=== PATIENT | male | born 1970 | race Caucasian/White ===

== ENCOUNTER 2018-03-27 18:37 | Inpatient (IN) | payer OTHER ==
[~2018-03-27] VITALS: Ht 177.8 cm; Wt 161.0 kg
[2018-03-27 19:03] LABS: CHLORIDE 97 mEq/L (99-109); POTASSIUM 3.5 mEq/L (3.7-5.4); SODIUM 136 mEq/L (136-147)
[2018-03-27 19:05] LABS: GLUCOSE 199 mg/dL (70-99)
[2018-03-27 19:09] LABS: CREATININE 1.1 mg/dL (0.6-1.3); GFR ESTIMATE (CALCULATED) > 59 mL/min/ (58.99-99999)
[2018-03-27 19:10] LABS: UREA NITROGEN (BUN) 11 mg/dL (9-23)
[2018-03-27 19:14] LABS: HEMATOCRIT 47.6 % (38.0-50.0); HEMOGLOBIN 16.5 G/DL (12.5-16.6); MCHC 34.7 G/DL (30.0-36.0); MCV 89.3 FL (86-99); PLATELET COUNT 207 K/uL (156-360); RBC DIS.WIDTH-CV 13.6 % (11.8-14.6); RBC DIS.WIDTH-SD 44.4 % (39-53); RED BLOOD COUNT 5.33 M/uL (4.00-5.50)
[2018-03-27 19:18] LABS: TROP-I INTERPRETATION NEGATIVE; TROPONIN-I 0.05 ng/mL (0.0-0.30)
[2018-03-27] MEDS ORDERED: JARDIANCE10 MG PO (19:31)
[2018-03-27] MEDS ORDERED: HYGROTON25 MG PO (19:31)
[2018-03-27] MEDS ORDERED: LIPITOR20 MG PO (19:31)
[2018-03-27] MEDS ORDERED: GLUCOTROL10 MG PO (19:32)
[2018-03-27] MEDS ORDERED: NITROSTAT0.4 MG SL (19:32)
[2018-03-27 19:38] LABS: MAGNESIUM 2.3 mg/dL (1.3-2.7)
[2018-03-27 19:45] LABS: LIPASE 17 U/L (1.0-51.0)
[2018-03-27 21:23] LABS: TOTAL PROTEIN 8.1 g/dL (6.4-8.3)
[2018-03-27 21:25] LABS: TOTAL BILIRUBIN 0.5 mg/dL (0.0-1.0)
[2018-03-27 21:26] LABS: ALKALINE PHOSPHATASE 94 IU/L (3-129); SERUM ETHYL ALCOHOL < 10 mg/dL
[2018-03-27 21:28] LABS: AST (GOT) 24 IU/L (2-34)
[2018-03-27 21:29] LABS: ALT (GPT) 25 IU/L (3-49); DIRECT BILIRUBIN 0.2 mg/dL (0.0-0.3)
[2018-03-27 23:35] VITALS: BP 139/68
[2018-03-28] VITALS (7 sets, daily range): BP systolic 101–142; BP diastolic 59–82
[2018-03-28 01:32] LABS: TROP-I INTERPRETATION NEGATIVE; TROPONIN-I 0.04 ng/mL (0.0-0.30)
[2018-03-28 03:31] LABS: APPEARANCE CLEAR ((CLEAR)); BILIRUBIN NEGATIVE; BLOOD MODERATE; COLOR YELLOW ((YELLOW)); GLUCOSE (STRIP) NEGATIVE; KETONES NEGATIVE; LEUKOCYTES NEGATIVE; NITRITE NEGATIVE; PROTEIN (STRIP) NEGATIVE; SPECIFIC GRAVITY 1.038 (1.000-1.030)
[2018-03-28 03:39] LABS: HDL CHOLESTEROL 28 MG/DL (Desirable>=40); LDL CHOLESTEROL 90 mg/dL (Desirable<100); NON-HDL CHOLESTEROL 112 mg/dL (Desirable<160); TOTAL CHOLESTEROL 140 mg/dL (Desirable<200); TRIGLYCERIDES 111 MG/DL (Normal: <150)
[2018-03-28 03:41] LABS: BACTERIA NONE SEEN /HPF; EPITHELIAL CELLS NONE SEEN /HPF; MUCUS NONE SEEN /LPF; RED BLOOD CELLS TNTC /HPF (0-5); UCUL ADDED? YES; WHITE BLOOD CELLS 0-5 /HPF (0-5)
[2018-03-28 04:13] LABS: BENZODIAZEPINES, URINE SCREEN Negative (200 ng/mL)
[2018-03-28 06:51] LABS: MCH 30.4 PG (29.0-34.0); MCHC 33.3 G/DL (30.0-36.0); MCV 91.1 FL (86-99); PLATELET COUNT 193 K/uL (156-360); RBC DIS.WIDTH-CV 13.8 % (11.8-14.6); RBC DIS.WIDTH-SD 46.5 % (39-53); RED BLOOD COUNT 4.94 M/uL (4.00-5.50)
[2018-03-28 07:10] LABS: TROP-I INTERPRETATION NEGATIVE; TROPONIN-I 0.02 ng/mL (0.0-0.30)
[2018-03-28 09:49] LABS: HEMOGLOBIN A1c (GLYCOHEMOGLOB) 6.6 % (Below 5.7)
[2018-03-28 10:34] LABS: INTER. NORMALIZED RATIO 1.1
[2018-03-29 03:30] VITALS: BP 133/68
[2018-03-29 06:30] LABS: HEMATOCRIT 45.3 % (38.0-50.0); HEMOGLOBIN 15.2 G/DL (12.5-16.6); MCH 30.4 PG (29.0-34.0); MCHC 33.6 G/DL (30.0-36.0); MCV 90.6 FL (86-99); PLATELET COUNT 183 K/uL (156-360); RBC DIS.WIDTH-CV 13.9 % (11.8-14.6); RBC DIS.WIDTH-SD 46.1 % (39-53); WHITE BLOOD COUNT 12.6 K/uL (4.1-10.2)
[2018-03-29 06:35] LABS: INTER. NORMALIZED RATIO 1.2
[2018-03-29 06:38] LABS: PTT 52.8 SEC (25-37)
[2018-03-29 06:54] LABS: CHLORIDE 96 MEQ/L (99-109); GFR ESTIMATE (CALCULATED) > 59 mL/min/ (58.99-99999); POTASSIUM 3.6 MEQ/L (3.7-5.4); SODIUM 136 MEQ/L (136-147); UREA NITROGEN (BUN) 12 mg/dL (9-23)
[2018-03-29 06:56] LABS: GLUCOSE 116 mg/dL (70-99)
[2018-03-29 08:00] VITALS: BP 119/72
[2018-03-29 12:11] VITALS: BP 121/77
[2018-03-29 16:03] VITALS: BP 132/78
[2018-03-29 19:53] VITALS: BP 118/72
[2018-03-30 00:49] VITALS: BP 104/60
[2018-03-30 02:50] LABS: HEMATOCRIT 44.6 % (38.0-50.0); HEMOGLOBIN 15.5 G/DL (12.5-16.6); MCH 31.1 PG (29.0-34.0); MCHC 34.8 G/DL (30.0-36.0); MCV 89.6 FL (86-99); PLATELET COUNT 218 K/uL (156-360); RBC DIS.WIDTH-CV 13.5 % (11.8-14.6); RBC DIS.WIDTH-SD 44.3 % (39-53); RED BLOOD COUNT 4.98 M/uL (4.00-5.50); WHITE BLOOD COUNT 13.3 K/uL (4.1-10.2)
[2018-03-30 02:56] LABS: INTER. NORMALIZED RATIO 1.2
[2018-03-30 04:49] VITALS: BP 132/76
[2018-03-30 07:27] VITALS: BP 127/67
[2018-03-30 11:06] VITALS: BP 130/73
[2018-03-30 21:02] VITALS: BP 121/71
[2018-03-31] VITALS (7 sets, daily range): BP systolic 115–135; BP diastolic 67–76
[2018-03-31 07:08] LABS: INTER. NORMALIZED RATIO 1.3
[2018-03-31 07:11] LABS: PTT 62.3 SEC (25-37)
[2018-04-01] VITALS (7 sets, daily range): BP systolic 95–165; BP diastolic 52–90
[2018-04-01 06:19] LABS: HEMATOCRIT 47.4 % (38.0-50.0); HEMOGLOBIN 15.8 G/DL (12.5-16.6); MCH 30.1 PG (29.0-34.0); MCHC 33.3 G/DL (30.0-36.0); MCV 90.3 FL (86-99); PLATELET COUNT 236 K/uL (156-360); RBC DIS.WIDTH-CV 13.4 % (11.8-14.6); RBC DIS.WIDTH-SD 44.3 % (39-53); RED BLOOD COUNT 5.25 M/uL (4.00-5.50); WHITE BLOOD COUNT 12.2 K/uL (4.1-10.2)
[2018-04-01 06:26] LABS: INTER. NORMALIZED RATIO 1.5
[2018-04-01 06:28] LABS: PTT 86.7 SEC (25-37)
[2018-04-01 06:46] LABS: CHLORIDE 94 MEQ/L (99-109); GFR ESTIMATE (CALCULATED) > 59 mL/min/ (58.99-99999); GLUCOSE 122 mg/dL (70-99); MAGNESIUM 2.1 mg/dl (1.3-2.7); POTASSIUM 4.1 MEQ/L (3.7-5.4); SODIUM 135 MEQ/L (136-147); UREA NITROGEN (BUN) 13 mg/dL (9-23)
[2018-04-02 04:00] VITALS: BP 124/71
[2018-04-02 07:04] LABS: INTER. NORMALIZED RATIO 1.8
[2018-04-02 07:07] LABS: PTT 92.1 SEC (25-37)
[2018-04-02 07:24] VITALS: BP 145/79
[2018-04-02 11:39] VITALS: BP 126/77
[2018-04-02 15:41] VITALS: BP 133/86
[2018-04-02 19:20] VITALS: BP 132/68
[2018-04-02 23:23] VITALS: BP 125/58; BP 125/70
[2018-04-03 03:19] VITALS: BP 124/81
[2018-04-03 06:13] LABS: INTER. NORMALIZED RATIO 2.1
[2018-04-03 06:15] LABS: PTT 96.7 SEC (25-37)
[2018-04-03 07:07] VITALS: BP 133/84
[2018-04-03] MEDS ORDERED: LIPITOR40 MG PO (10:39)
[2018-04-03] MEDS ORDERED: COUMADIN2.5 MG PO (10:41)
[2018-04-03 11:15] VITALS: BP 147/82
== END 2018-04-03 12:37 | disposition home or self-care (01) | DRG 176 ==
LOC: EME 18:37 → EDOF 20:52 → ENRESERV 20:55 → 4SOUTH 23:21 → ENRESERV 03-28 00:40 → 4SOUTH 03-28 00:40 → 4EAST 03-28 00:40 → 4SOUTH 03-28 00:40 → ENRESERV 03-28 00:56 → 4EAST 03-28 01:34 → ENPENDDIS 04-03 → 4EAST 04-03 12:37
PROVIDERS: Hospitalist; Internal Medicine; Physician Assistant Medical
DX: I26.99 Other pulmonary embolism without acute cor pulmonale (principal); I82.432 Acute embolism and thrombosis of left popliteal vein; F17.210 Nicotine dependence, cigarettes, uncomplicated; Z68.43 Body mass index [BMI] 50.0-59.9, adult; R09.02 Hypoxemia; E11.65 Type 2 diabetes mellitus with hyperglycemia; I83.018 Varicose veins of right lower extremity with ulcer other part of lower leg; I10 Essential (primary) hypertension; J40 Bronchitis, not specified as acute or chronic; G47.33 Obstructive sleep apnea (adult) (pediatric); E78.5 Hyperlipidemia, unspecified; E66.01 Morbid (severe) obesity due to excess calories; L97.819 Non-pressure chronic ulcer of other part of right lower leg with unspecified severity; F32.9 Major depressive disorder, single episode, unspecified; Z91.19 Patient's noncompliance with other medical treatment and regimen; Z79.84 Long term (current) use of oral hypoglycemic drugs; Z79.899 Other long term (current) drug therapy
CPT/HCPCS: 36600; 71046; 71275; 80048; 80061; 80076; 80306 90; 81003; 82803; 82948; 83036; 83690; 83735; 84484; 85027; 85610; 85730; 87086; 93005; 93306; 93970; 94760; 94799; 99281; 99285; G0378; G0480; J1650; J1815